=== PATIENT | female | born 1990 | race Caucasian/White ===

== ENCOUNTER → 2017-07-16 | Outpatient (CLI) | payer OTHER | END | disposition home or self-care (01) | LOC: C.PAPS 13:43 | PROVIDERS: ATTEND Obstetrics & Gynecology | DX: Z12.4 Encounter for screening for malignant neoplasm of cervix (principal) ==

== ENCOUNTER 2020-04-14 11:39 | Inpatient (IN) ==
[2020-04-14] MEDS ORDERED: OXYTOCIN 30 UNITS/500 ML BAG IV PRN ×2 (12:30→18:44)
[2020-04-14 13:04] LABS: Hemoglobin 12.6 g/dL (12.0-16.0); Mean Corpuscular Hemoglobin 30.5 pg (25-34); Mean Corpuscular Volume 89.6 fL (80-100); Mean Platelet Volume 11.5 fL (7.4-10.4); Platelet Count 169 K/uL (130-400); RDW Coefficient of Variation 13.5 % (11.5-14.5); RDW Standard Deviation 44.2 fL (36.4-46.3); Red Blood Count 4.13 M/uL (4.2-5.4); White Blood Count 9.75 K/uL (4.8-10.8)
[2020-04-14 13:07] LABS: Mean Corpuscular Hgb Conc 34.1 g/dL (32-36)
[2020-04-14 13:21] LABS: Alanine Aminotransferase 21 U/L (12-78); Albumin Level 2.4 gm/dl (3.4-5.0); Aspartate Aminotransferase 18 U/L (15-37); BUN Creatinine Ratio 12.2 (10-20); Blood Urea Nitrogen 10 mg/dl (7-18); Calcium 8.9 mg/dl (8.5-10.1); Carbon Dioxide 22 mmol/L (21-32); Chloride 108 mmol/L (98-107); Creatinine Clr Calc Pharmacy 116.5 ml/min; Est GFR (African American) 114.7; Est GFR (Non-African American) 98.9; Glucose 108 mg/dl (70-99); Potassium 4.1 mmol/L (3.5-5.1); Sodium 137 mmol/L (136-145)
[2020-04-14 13:24] LABS: Albumin Globulin Ratio 0.6 (0.9-2); Alkaline Phosphatase 179 U/L (45-117); Bilirubin Direct < 0.1 mg/dl (0-0.2); Bilirubin,Total 0.2 mg/dl (0.2-1); Total Protein 6.4 gm/dl (6.4-8.2)
[2020-04-14] MEDS ORDERED: PENICILLIN G POTASSIUM 6 MU in DEXTROSE 5% 250 ML IV ONE (14:30)
[2020-04-14] MEDS ORDERED: miSOPROStoL 25 MCG TAB PV ONE (14:40)
--- NOTE | 2020-04-14 18:42 | Labor Progress Brief Note ---
Date of Service April 14, 2020 Subjective Tolerating ctx, 1/10 pain. Assessment & Plan (1) Gestational hypertension: Admitted for induction of labor due to meeting criteria for gHTN in the office today at >39wk [place]. Labs have been reassuring, no s/sx preeclampsia here. Cytotec for ripening now complete; start pitocin. Admission and Anticipated Discharge Date Admission Date: April 14, 2020 Physical Exam Physical Exam: 280/-2 Intact membranes FHT Cat 1 [place] Q5 Results & Data ([facility]) Vital Signs (Past 12 Hours) Vital Signs Temp Pulse Resp BP 04/14/20 14:50 98.4 F 83 20 132/78 04/14/20 13:08 83 140/86 04/14/20 12:59 83 137/84 04/14/20 12:48 83 135/85 04/14/20 12:39 86 132/84 04/14/20 12:29 82 138/75 04/14/20 12:19 97 H 138/82 04/14/20 12:08 88 128/81 04/14/20 11:58 99 H 136/87 04/14/20 11:45 98.6 F 91 H 20 136/89 Coding Level of Care Code None Diagnoses Gestational hypertension O13.9
[2020-04-14] MEDS: LACTATED RINGER'S 1,000 ML IV PRN (19:10)
[2020-04-14] MEDS ORDERED: miSOPROStoL 25 MCG TAB PV SCH (21:00)
--- NOTE | 2020-04-14 22:23 | Labor Progress Brief Note ---
Date of Service April 14, 2020 Subjective Patient sleeping per RN, not awakened. No epidural, preferring to go without as long as possible. Assessment & Plan (1) Gestational hypertension: BP currently normal, labs were reassuring. Continue IOL, pitocin increasing per protocol and patient tolerating well. Admission and Anticipated Discharge Date Admission Date: April 14, 2020 Physical Exam Physical Exam: Cvx not examined at this time. FHT Cat 1 [place] Q2 Pit @ 11 Results & Data ([facility]) Vital Signs (Past 12 Hours) Vital Signs Temp Pulse Resp BP 04/14/20 22:06 83 125/65 04/14/20 20:58 68 121/59 L 04/14/20 19:59 81 135/82 04/14/20 19:08 20 04/14/20 19:06 73 134/80 04/14/20 19:05 98.1 F 20 04/14/20 14:50 98.4 F 83 20 132/78 04/14/20 13:08 83 140/86 04/14/20 12:59 83 137/84 04/14/20 12:48 83 135/85 04/14/20 12:39 86 132/84 04/14/20 12:29 82 138/75 04/14/20 12:19 97 H 138/82 04/14/20 12:08 88 128/81 04/14/20 11:58 99 H 136/87 04/14/20 11:45 98.6 F 91 H 20 136/89 Coding Level of Care Code None Diagnoses Gestational hypertension O13.9
[2020-04-14] MEDS: PENICILLIN G POTASSIUM 3 MU in DEXTROSE 5% 100 ML IV PRN (22:55)
[2020-04-15] MEDS: PENICILLIN G POTASSIUM 3 MU in DEXTROSE 5% 100 ML IV PRN ×3 (03:05→11:33)
[2020-04-15] MEDS: LACTATED RINGER'S 1,000 ML IV PRN ×2 (06:09→11:32)
--- NOTE | 2020-04-15 06:15 | Labor Progress Brief Note ---
Date of Service April 15, 2020 Subjective Patient tolerating contractions, does not want epidural. Assessment & Plan (1) Gestational hypertension: gHTN: Diagnosed by office pressures. BP normal here, labs OK. Minimal change after cytotec x1 followed by pitocin. Patient still prefers to proceed without epidural, therefore AROM performed at this time. Adjust pitocin, continue IOL. Admission and Anticipated Discharge Date Admission Date: April 14, 2020 Physical Exam Physical Exam: Cervix unchanged: 2/80/-2 [place] Q2m FHT Cat 1 AROM clear fluid Pit @ 20, will halve to 10 now for 1 hour to assess response to AROM / desaturate receptors. Results & Data ([facility]) Vital Signs (Past 12 Hours) Vital Signs Temp Pulse Resp BP 04/15/20 05:30 20 04/15/20 05:29 86 132/81 04/15/20 04:33 78 126/77 04/15/20 03:27 76 123/77 04/15/20 03:07 77 125/77 04/15/20 03:00 98.1 F 20 04/15/20 02:33 71 120/60 04/15/20 01:47 76 136/64 04/15/20 01:21 71 134/79 04/15/20 00:33 71 122/70 04/15/20 00:00 97.9 F 20 04/14/20 23:56 66 121/75 04/14/20 22:58 20 04/14/20 22:56 73 130/80 04/14/20 22:06 83 125/65 04/14/20 20:58 68 121/59 L 04/14/20 19:59 81 135/82 04/14/20 19:08 20 04/14/20 19:06 73 134/80 04/14/20 19:05 98.1 F 20 Coding Level of Care Code None Diagnoses Gestational hypertension O13.9
[2020-04-15] MEDS ORDERED: fentaNYL citrate 100 MCG/2 ML VIAL ONE (07:43)
[2020-04-15] MEDS ORDERED: BUPIVACAINE 0.25% 30 ML VIAL ONE (07:43)
[2020-04-15] MEDS ORDERED: ePHEDrine sulfate 50 MG/ML AMP ONE (07:43)
[2020-04-15] MEDS ORDERED: fentaNYL 2MCG/ML ROPIV 1.25MG/ML 100 ML BAG EPI ONE (07:44)
--- NOTE | 2020-04-15 07:53 | Anesthesiology Consultation ---
Date of Service April 15, 2020 Assessment & Plan (1) Encounter for pre-operative examination: Chart Review Chart Review: Acceptable Risk for Labor Epidural Consults Requested none ASA ASA2 Proposed Anesthesia Anesthesia Type: Labor Epidural Risk / Benefits Reviewed With: PT / POA / Parent / Guardian, Accepts Plan and Informed Consent Obtained History Height/Weight Height: 5 ft 5 in Weight: 93.894 kg Allergies Allergy/AdvReac Type Severity Reaction Status Date / Time No Known Drug Allergies Allergy none Verified 04/14/20 11:50 Medications Home Medications Medication Instructions Recorded Confirmed Last Taken prenat.vits,hansel,sho-ygts-rjiis 1 tab PO DAILY 08/27/19 04/14/20 04/13/20 23:45 Active Medications Generic Name Dose Route Start Last Admin Trade Name Freq PRN Reason Stop Dose Admin Lactated Ringer's 1,000 mls @ 125 mls/hr 04/14/20 12:30 04/15/20 07:47 Lr IV 04/16/20 12:29 999 mls/hr .Q8H PRN Infusion L&D Protocol Protocol Penicillin G Potassium 3 mu/ 106 mls @ 100 mls/hr 04/14/20 14:11 04/15/20 06:41 Dextrose IV 04/24/20 14:10 100 mls/hr Q4H PRN Administration Give until delivery Oxytocin 30 units in 500 mls @ 12 mls/hr 04/14/20 18:44 04/15/20 07:30 Pitocin IV 04/16/20 18:43 0.72 units/hr .Q24H PRN 12 mls/hr Labor Induction/Augmentation Titration Protocol 0.72 UNITS/HR Past Medical History Medical History Abnormal biochemical finding on screening of mother Encounter for anatomic survey History of PCOS Exercise / Class Metabolic Activity II 4-5 Yardwork/Stairs/Walk up hill Past Family History Family History Mother Diabetes Father Hypertension Past Surgical History Surgical History S/P wisdom tooth extraction Past Anesthesia History No Hx of Anesthesia Complications and No Family Hx of Anesthesia Complications History of PONV No Hx of PONV and No Hx of Motion Sickness Social History Smoking Status: Never smoker Hx Alcohol Use: No Hx Substance Use: No Physical Exam Vital Signs Last Vital Signs Temp 97.7 F 04/15/20 07:11 Pulse 88 04/15/20 07:11 Resp 20 04/15/20 07:11 BP 137/81 04/15/20 07:11 ENMT Mouth: no dentition abnormality Thyromental Distance: > or= 3.5 Finger Breadths Mallampati Class: II Neck normal visual inspection Respiratory normal respiratory effort Auscultation: lungs clear to auscultation bilaterally Cardiovascular Rate/Rhythm: regular rate and regular rhythm Testing Laboratory Results 04/14/20 12:53 04/14/20 12:53
[2020-04-15] MEDS ORDERED: DiphenhydrAMINE HCL 50 MG/ML VIAL IV PRN (08:15)
[2020-04-15] MEDS ORDERED: NALOXONE HCL 0.4 MG/1 ML VIAL/CARP IV PRN (08:15)
[2020-04-15] MEDS ORDERED: fentaNYL 2MCG/ML ROPIV 1.25MG/ML 100 ML BAG EPI PRN (08:15)
[2020-04-15] MEDS ORDERED: NALOXONE HCL 1 MG in SODIUM CHLORIDE 0.9% 1000ML 1,000 ML IV PRN (08:15)
[2020-04-15] MEDS ORDERED: ONDANSETRON INJ 2 MG/ML 2 ML VIAL IV PRN (08:15)
[2020-04-15] MEDS ORDERED: ePHEDrine sulfate 50 MG/ML AMP IV PRN (08:15)
--- NOTE | 2020-04-15 11:22 | Labor Progress Brief Note ---
Date of Service April 15, 2020 Subjective Reason For Note: Routine Evaluation Assessment & Plan (1) Gestational hypertension: Complete. Vitals wnl. Cat 1 (2) Supervision of normal first : Admission and Anticipated Discharge Date Admission Date: April 14, 2020 Physical Exam Genitourinary: OB Exam Abdomen: + vertex Manual OB Exam: + cervical dilation 10 cm, + cervical effacement 100%, + station + 2 and + amniotic fluid clear OB Exam Monitor Tracing: + external FHT monitor used, + external uterine monitor used, + category I and + normal FHT variability Results & Data ([facility]) Vital Signs (Past 12 Hours) Vital Signs Temp Pulse Resp BP Pulse Ox 04/15/20 11:15 82 98 04/15/20 11:13 86 121/59 L 04/15/20 11:10 97 H 99 04/15/20 11:05 78 97 04/15/20 11:00 79 98 04/15/20 10:57 71 114/57 L 04/15/20 10:55 80 98 04/15/20 10:52 82 93 04/15/20 10:50 74 98 04/15/20 10:45 77 99 04/15/20 10:42 80 120/57 L 04/15/20 10:40 75 98 04/15/20 10:37 85 93 04/15/20 10:35 79 99 04/15/20 10:30 68 98 04/15/20 10:26 80 118/65 04/15/20 10:25 76 96 04/15/20 10:23 102 H 93 04/15/20 10:20 84 97 04/15/20 10:15 82 90 04/15/20 10:12 93 H 93 04/15/20 10:11 79 132/81 04/15/20 10:09 79 96 04/15/20 10:06 82 90 04/15/20 10:04 71 96 04/15/20 09:59 81 98 04/15/20 09:56 76 130/77 04/15/20 09:54 66 98 04/15/20 09:49 77 98 04/15/20 09:44 67 97 04/15/20 09:42 78 137/75 04/15/20 09:39 75 95 04/15/20 09:34 79 98 04/15/20 09:31 60 91 04/15/20 09:29 63 96 04/15/20 09:26 75 129/80 04/15/20 09:24 74 97 04/15/20 09:19 72 96 04/15/20 09:14 76 98 04/15/20 09:11 63 16 129/78 04/15/20 09:09 62 96 04/15/20 09:07 86 93 04/15/20 09:04 72 97 04/15/20 08:59 71 98 04/15/20 08:56 79 129/77 04/15/20 08:54 65 99 04/15/20 08:49 65 97 04/15/20 08:44 82 93 04/15/20 08:41 58 L 132/76 04/15/20 08:39 62 100 04/15/20 08:34 67 99 04/15/20 08:29 77 99 04/15/20 08:26 36.7 C 71 16 119/76 04/15/20 08:24 71 127/77 99 04/15/20 08:21 68 20 125/76 04/15/20 08:20 72 20 125/73 04/15/20 08:19 71 97 04/15/20 08:17 84 124/79 04/15/20 08:15 82 129/72 04/15/20 08:14 85 98 04/15/20 08:13 76 128/75 04/15/20 08:12 75 127/73 04/15/20 08:09 75 136/84 97 04/15/20 08:04 76 97 04/15/20 07:59 86 98 04/15/20 07:54 79 141/83 H 97 04/15/20 07:11 36.5 C 88 20 137/81 04/15/20 06:27 82 137/82 04/15/20 06:05 36.7 C 04/15/20 05:30 20 04/15/20 05:29 86 132/81 04/15/20 04:33 78 126/77 0820 03:27 76 123/77 04/15/20 03:07 77 125/77 04/15/20 03:00 36.7 C 20 04/15/20 02:33 71 120/60 06 01:47 76 136/64 04/15/20 01:21 71 134/79 04/15/20 00:33 71 122/70 04/15/20 00:00 36.6 C 20 04/14/20 23:56 66 121/75 Coding Level of Care Code None Diagnoses Gestational hypertension O13.9 Supervision of normal first Z34.00
[2020-04-15] MEDS ORDERED: OXYCODONE/ACETAMINOPHEN 5mg/325mg TAB PO PRN (13:15)
[2020-04-15] MEDS ORDERED: ACETAMINOPHEN 325 MG TAB PO PRN (13:15)
[2020-04-15] MEDS ORDERED: SUPERCREAM 0.870% 15 GM JAR EXT PRN (13:37)
[2020-04-15] MEDS ORDERED: IBUPROFEN 600 MG TAB PO PRN (13:37)
[2020-04-15] MEDS ORDERED: DIPHTHERIA/TETANUS/PERTUSSIS 0.5 ML SYR/VIAL IM ONE (13:37)
[2020-04-15] MEDS ORDERED: HYDROCORTISONE ACETATE 25 MG SUPP PR PRN (13:37)
[2020-04-15] MEDS ORDERED: bisacodyL 10 MG SUPP PR PRN (13:37)
[2020-04-15] MEDS ORDERED: OXYTOCIN 30 UNITS/500 ML BAG IV PRN (13:37)
--- NOTE | 2020-04-15 14:49 | Anesthesia Procedure Note ---
Date of Service April 15, 2020 Anesthesia Post Epidural Note Vital Signs Vital Signs: Temp Pulse Resp BP Pulse Ox 98.1 F 100 H 16 132/77 85 L 04/15/20 13:11 04/15/20 14:41 04/15/20 14:12 04/15/20 14:41 04/15/20 13:21 Pain Intensity Abdomen: Pain Intensity: 0 Notes Mental Status: alert / awake / arousable and participated in evaluation Nausea / Vomiting: adequately controlled Pain: adequately controlled Airway Patency, RR, SpO2: stable & adequate BP & HR: stable & adequate Hydration State: stable & adequate Neuraxial Anesthesia: was administered and sensory block is resolving Anesthetic Complications: no major complications apparent and Pt Satisfied with anesthetic care Epidural: Removed without complications and With tip intact
--- NOTE | 2020-04-15 16:32 | Delivery Summary ---
DATE OF OPERATION: 04/15/2020 PROCEDURE: Normal spontaneous vaginal delivery with first degree perineal laceration repair and left vaginal sulcal laceration repair and periurethral laceration repair. SURGEON: Jareth Márquez MD. PREOPERATIVE DIAGNOSES: 1. Single intrauterine at 39+ weeks gestational age. 2. Gestational hypertension. 3. Group B Streptococcus positive. POSTOPERATIVE DIAGNOSES: 1. Single intrauterine at 39+ weeks gestational age. 2. Gestational hypertension. 3. Group B Streptococcus positive. 4. Status post delivery. ESTIMATED BLOOD LOSS: 300 mL. DRAINS: Straight cath for 300 mL. FLUIDS: Continuous lactated Ringer. URINE OUTPUT: As above. COMPLICATIONS: None. FINDINGS: Viable female with weight of 7 pounds 0.8 ounces and Apgars of 7 and 9 at one and five minutes, respectively. DESCRIPTION OF PROCEDURE: The patient progressed to 10 cm dilated, 100% effaced, +2 station, pushed over an intact perineum with epidural anesthesia and delivered a viable female , weight and Apgars as noted above. Head of the delivered in BIENVENIDO position, restituted to right transverse. No nuchal cord was noted. Body and shoulders quickly followed. was noted to be vigorous soon after delivery and a 1-minute delayed cord clamping was initiated. Cord was then double clamped and cut. The remained on maternal abdomen. The cord blood was then obtained. Attention was then turned to deliver the placenta, which was delivered intact, 3-vessel cord, gentle cord traction. On inspection of perineum, vagina, and cervix, the above noted lacerations were noted. The vaginal lacerations were repaired with 3-0 Vicryl continuous running locked stitch. The periurethral laceration was repaired with 3-0 Vicryl in interrupted stitch. Needle, sponge and instrument counts were correct at the completion of the case. Both mother and were stable in the immediate post-delivery period. I attest to the content of the Intraoperative Record and any orders documented therein. Any exception s are noted below.
[2020-04-15] MEDS: BENZOCAINE 20% AER SPR 82.5 GM CAN EXT PRN (20:27)
[2020-04-15] MEDS: DOCUSATE SODIUM 100 MG CAP PO SCH (20:27)
--- NOTE | 2020-04-16 05:11 | Obstetrical Progress Note ---
Date of Service <Obinna Ang MD - Last Filed: 04/16/20 07:12> April 16, 2020 Assessment & Plan <Obinna Ang MD - Last Filed: 04/16/20 07:12> (1) (spontaneous vaginal delivery): - Feels well today. Eating well, voiding well, ambulating well. - Pain well controlled with ibuprofen 600mg Q4H PRN. - Routine PPD care -- OOB, ambulation, diet progression as tolerated Day #:: 1 Subjective <Obinna Ang MD - Last Filed: 04/16/20 07:12> Jessica is a 29 y/o female who is now PPD #1 following IOL (in setting of gHTN onset at term) and subsequent at 39-2/7 weeks. Reports feeling well overall this morning. Endorses some abdominal cramping that is well managed on analgesics. Voiding without difficulty. Tolerating meals overnight and able to ambulate some. Endorses passing gas but not yet bowel movements. Some persistent lochia with some improvement this morning. Breast feeding. Review of Systems Denies fever, chills, sweats Denies shortness of breath, difficulty breathing, chest pain, palpitations, chest pressure. Denies breast pain. Denies dysuria. Denies headache or changes in vision. Physical Exam <Obinna Ang MD - Last Filed: 04/16/20 07:12> General: Alert, oriented. No acute distress. Cardiac: Regular rate and rhythm, no murmurs/rubs/gallops. Respiratory: Clear to auscultation bilaterally a/p, no wheezes/rales/rhonchi. No increased work of breathing. Symmetrical chest rise. No respiratory distress. Abdomen: Soft, nontender, nondistended. Bowel sounds present. Uterus: Uterine fundus firm, palpable 1 cm below umbilicus. Lower Extremities: No lower extremity edema or swelling. No deep calf pain. Jennifer's negative bilaterally. Results & Data <Obinna Ang MD - Last Filed: 04/16/20 07:12> Vital Signs (Past 12 Hours) Vital Signs Temp Pulse Resp BP Pulse Ox 04/16/20 04:30 36.9 C 81 18 125/73 04/15/20 23:45 37.1 C 97 H 18 127/71 08/06/20 19:30 36.8 C 92 H 18 119/74 99 <Jareth Márquez MD - Last Filed: 04/16/20 07:39> Co-Signing Physician Notes Patient seen and evaluated and agree with the above findings and plan. Routine care. Stable for discharge if preferred by patient Resident Activity Tracking <Obinna Ang MD - Last Filed: 04/16/20 07:12> Resident Involvement: Resident Care Provided Care Provided: Adult Hospital Medicine and OB Delivery
[2020-04-16 06:59] LABS: Hematocrit (blood only) 33.5 % (37-47); Hemoglobin 11.3 g/dL (12.0-16.0); Mean Corpuscular Hemoglobin 30.5 pg (25-34); Mean Corpuscular Hgb Conc 33.7 g/dL (32-36); Mean Corpuscular Volume 90.5 fL (80-100); Platelet Count 159 K/uL (130-400); RDW Standard Deviation 45.9 fL (36.4-46.3); White Blood Count 10.44 K/uL (4.8-10.8)
[2020-04-16] MEDS: PRENATAL VITAMIN 1 TAB PO SCH (08:34)
[2020-04-16] MEDS: DOCUSATE SODIUM 100 MG CAP PO SCH ×2 (08:34→20:32)
[2020-04-16] MEDS ORDERED: NON-FORMULARY MEDICATION (Prenat.Vits,Cal,Min-Iron-Folic 1 TAB) PO SCH (09:00)
[2020-04-16] MEDS ORDERED: bisacodyL 5 MG TABEC PO SCH (20:00)
--- NOTE | 2020-04-17 05:09 | Obstetrical Progress Note ---
Date of Service <Obinna Ang MD - Last Filed: 04/17/20 06:26> April 17, 2020 Assessment & Plan <Obinna Ang MD - Last Filed: 04/17/20 06:26> (1) (spontaneous vaginal delivery): - Feels well today. Eating well, voiding well, ambulating well. - Pain well controlled with ibuprofen 600mg Q4H PRN. - Routine PPD care -- continued OOB and ambulation as tolerated - With regards to her gHTN, BPs over the last 24 hours have mostly hovered in the 120/70 range, with a recorded max of 138/82 at 1535hr yesterday. Jessica remains asymptomatic from the standpoint of preeclamptic symptoms. - stable for d/c today Subjective <Obinna Ang MD - Last Filed: 04/17/20 06:26> Jessica is a 29 y/o female who is now PPD #2 following IOL (in setting of gHTN onset at term) and subsequent at 39-2/7 weeks. Reports feeling well overall this morning. Endorses some abdominal cramping that is well managed on analgesics. Voiding without difficulty. Tolerating meals fine and able to ambulate some. Endorses passing gas but not yet bowel movements. Some persistent lochia with some improvement this morning. Breast feeding. Review of Systems Denies fever, chills, sweats Denies shortness of breath, difficulty breathing, chest pain, palpitations, chest pressure. Denies breast pain. Denies dysuria. Denies headache or changes in vision. Physical Exam <Obinna Ang MD - Last Filed: 04/17/20 06:26> General: Alert, oriented. No acute distress. Cardiac: Regular rate and rhythm, no murmurs/rubs/gallops. Respiratory: Clear to auscultation bilaterally a/p, no wheezes/rales/rhonchi. No increased work of breathing. Symmetrical chest rise. No respiratory distress. Abdomen: Soft, nontender, nondistended. Bowel sounds present. Uterus: Uterine fundus firm, palpable 2 cm below umbilicus. Lower Extremities: No lower extremity edema or swelling. No deep calf pain. Jennifer's negative bilaterally. Results & Data <Obinna Ang MD - Last Filed: 04/17/20 06:26> Vital Signs (Past 12 Hours) Vital Signs Temp Pulse Resp BP 04/16/20 23:15 36.8 C 76 18 118/69 04/16/20 20:30 36.7 C 88 18 135/79 <Ayla Dawson MD, FACOG - Last Filed: 04/17/20 07:29> Co-Signing Physician Notes Resident Physician Supervision Note: I interviewed and examined the patient. Discussed with Dr. Ang and agree with findings and plan as documented in the note. Any exceptions or clarifications are listed here: Doing well. Plan d/c. no issues with blood pressures. f/u in a week in office for blood pressure check. Documented By: Ayla Dawsno MD, FACOG Resident Activity Tracking <Obinna Ang MD - Last Filed: 04/17/20 06:26> Resident Involvement: Resident Care Provided Care Provided: Adult Hospital Medicine and OB Delivery
[2020-04-17] MEDS: DOCUSATE SODIUM 100 MG CAP PO SCH ×2 (08:03→21:00)
[2020-04-17] MEDS: PRENATAL VITAMIN 1 TAB PO SCH (08:03)
[2020-04-17 08:15] VITALS: TEMP 98.4
[2020-04-17 19:36] VITALS: BP 137/80; PULSE 86; O2SAT 97
[2020-04-17] MEDS: BENZOCAINE 20% AER SPR 82.5 GM CAN EXT PRN (21:17)
== END 2020-04-17 21:30 | disposition home or self-care (01) | DRG 807 ==
LOC: OPB 11:39 → 4S1 11:42 → 4S2 04-15 16:48

== ENCOUNTER 2023-02-12 07:43 | Inpatient (IN) ==
[2023-02-12] MEDS ORDERED: OXYTOCIN 30 UNITS/500 ML BAG IV PRN ×3 (07:44→21:44)
[2023-02-12] MEDS ORDERED: LIDOCAINE 1% LOCAL 20 ML VIAL INFIL PRN (07:44)
[2023-02-12] MEDS ORDERED: PENICILLIN G POTASSIUM 6 MU in DEXTROSE 5% 250 ML IV STA (08:16)
--- NOTE | 2023-02-12 08:22 | History & Physical Report ---
Date of Service February 12, 2023 Assessment & Plan (1) Encounter for induction of labor: (2) Gestational diabetes mellitus (GDM) affecting , antepartum: (3) Carrier of group B Streptococcus: Plan admit, iv, labs. pitocin induction planned. start pcn for gbs. bsg now and q2hr in labor. epidural when desires. Admission and Anticipated Discharge Date Admission Date: February 12, 2023 History of Present Illness Chief Complaint: induction Primary Care Provider: NO PCP 32yo at 40+wks ega presents to L&D with above cc. Denies rom, vb. +FM. No ctx. PNC c/b 1. GBS pos urine, trt in labor 2. GDM, diet controlled. aga on u/s 3. History of polyhydramnios, resolved at last dvp 4. Prior history of gest htn PNL rhpos, ri, gbs pos Allergies Allergy/AdvReac Type Severity Reaction Status Date / Time No Known Drug Allergies Allergy none Verified 02/08/23 10:03 Home Medications Medication Instructions Recorded Confirmed Type prenat.vits,hansel,xzi-dtce-vucjl 1 tab PO DAILY 07/03/22 02/08/23 History acetone (urine) test (Ketone Urine #50 ea 12/04/22 02/08/23 Rx Test strips) blood sugar diagnostic (OneTouch #150 ea 12/04/22 02/08/23 Rx Verio test strips) blood-glucose meter (OneTouch #1 ea 12/04/22 02/08/23 Rx Verio Reflect Meter) lancets 33 gauge (OneTouch Delica #150 ea 12/04/22 02/08/23 Rx Lancets) Patient History Medical History (Updated 02/12/23 @ 08:20 by Patricia Hooper MD, FACOG) Abnormal biochemical finding on screening of mother Encounter for anatomic survey History of chicken pox History of gestational hypertension History of PCOS Surgical History S/P wisdom tooth extraction Family History (Updated 07/03/22 @ 13:08 by Isha Hale) Mother Diabetes Father Hypertension Denies family history of Ovarian cancer Breast cancer Colorectal cancer Social History (Updated 07/03/22 @ 13:26 by Isha Hale) Smoking Status: Never smoker Do You Dip or Chew Tobacco: No; Hx Alcohol Use: No Hx Substance Use: No Preferred Language: Divehi Communication Ability: Effective Econometrics Professor Required: No Beliefs That Will Affect Care: None marital status: marital status details: Bryon Epps (32) [phone] Current Living Situation: Spouse and Family Current Living Situation Comment: lives with spouse, child & 1 dog current occupational status: employed current occupation: [employer] Feels Safe at Home: Yes Assistive Devices: None Review of Systems as per Subjective / HPI Physical Exam Constitutional: WD/WN, vitals as above Respiratory: normal respiratory effort, lungs clear to auscultation Cardiovascular: Rate/Rhythm: regular rate and regular rhythm Gastrointestinal (Abdomen): soft gravid nt efw 7-8# Musculoskeletal: no edema nontender calves Neurologic: grossly normal Psychiatric: A+Ox3, euthymic affect Genitourinary: Manual OB Exam: + cervical dilation (3), + cervical effacement 50% and + station (post, med) -2 OB Exam Monitor Tracing: + external FHT monitor used, + external uterine monitor used, + category I and + normal FHT variability Results & Data Vital Signs (Past 12 Hours) Vital Signs Pulse BP 02/12/23 07:57 100 H 141/82 H Coding Level of Care Code None Diagnoses Encounter for induction of labor Z34.90 Gestational diabetes mellitus (GDM) affecting , antepartum O24.419 Carrier of group B Streptococcus Z22.330
[2023-02-12 08:44] LABS: Hematocrit (blood only) 35.4 % (37.0-47.0); Hemoglobin 12.3 g/dl (12.0-16.0); Mean Corpuscular Hemoglobin 29.7 pg (25.0-34.0); Mean Corpuscular Hgb Conc 34.7 g/dL (32.0-36.0); Mean Corpuscular Volume 85.5 fL (80.0-100.0); Mean Platelet Volume 11.5 fL (9.4-12.4); Platelet Count 232 K/uL (130-400); RDW Coefficient of Variation 13.5 % (11.5-14.5); RDW Standard Deviation 42.2 fL (36.4-46.3); Red Blood Count 4.14 M/uL (4.20-5.40); White Blood Count 10.72 K/ul (4.8-10.8)
[2023-02-12 08:58] LABS: Albumin Globulin Ratio 1.2 (0.9-2); Albumin Level 3.1 gm/dl (3.4-5.0); BUN Creatinine Ratio 20.3 (10-20); Bilirubin Direct 0.1 mg/dl (0-0.2); Bilirubin,Total 0.3 mg/dl (0.2-1.0); Calcium 8.6 mg/dl (8.6-10.3); Creatinine Clr Calc Pharmacy 139.5 ml/min; Est GFR (African American) 135.9 ml/min; Est GFR (Non-African American) 117.2 ml/min; Globulin 2.6 gm/dl (2.5-4.0); Potassium 3.6 mmol/L (3.5-5.1); Total Protein 5.7 gm/dl (6.0-8.3)
[2023-02-12] MEDS: LACTATED RINGER'S 1,000 ML IV PRN ×3 (09:06→20:47)
[2023-02-12] MEDS: PENICILLIN G POTASSIUM 3 MU in DEXTROSE 5% 100 ML IV PRN ×2 (13:22→17:35)
[2023-02-12] MEDS ORDERED: ePHEDrine sulfate 50 MG/ML AMP ONE (14:26)
[2023-02-12] MEDS ORDERED: fentaNYL citrate PF 100 MCG/2 ML VIAL ONE (14:27)
[2023-02-12] MEDS ORDERED: fentaNYL 2MCG/ML ROPIVACAINE 1.25MG/ML 100 ML BAG EPI ONE (14:27)
[2023-02-12] MEDS ORDERED: BUPIVACAINE 0.25% PF 30 ML VIAL ONE (14:27)
[2023-02-12] MEDS ORDERED: SODIUM CHLORIDE 0.9% PF INJ 10 ML VIAL ONE (14:27)
[2023-02-12] MEDS ORDERED: LIDOCAINE 2%/EPINEPHRINE 1:200,000 20 ML PF ONE (14:27)
[2023-02-12] MEDS ORDERED: fentaNYL 2MCG/ML ROPIVACAINE 1.25MG/ML 100 ML BAG EPI PRN (15:41)
[2023-02-12] MEDS ORDERED: LIDOCAINE 2% MPF LOCAL 5 ML VIAL EPI PRN (15:41)
[2023-02-12] MEDS ORDERED: SODIUM CHLORIDE 0.9% PF INJ 10 ML VIAL EPI PRN (15:41)
[2023-02-12] MEDS ORDERED: NALOXONE HCL 1 MG in SODIUM CHLORIDE 0.9% 1000ML 1,000 ML IV PRN (15:41)
[2023-02-12] MEDS ORDERED: LIDOCAINE 2%/EPINEPHRINE 1:200,000 20 ML PF EPI STA (15:41)
[2023-02-12] MEDS ORDERED: NALBUPHINE HCL INJ 10 MG/ML AMP IV PRN (15:41)
[2023-02-12] MEDS ORDERED: SODIUM CHLORIDE 0.9% PF INJ 10 ML VIAL EPI STA (15:41)
[2023-02-12] MEDS ORDERED: diphenhydrAMINE 50 MG/ML VIAL IV PRN (15:41)
[2023-02-12] MEDS ORDERED: PROMETHAZINE HCL 6.25 MG in SODIUM CHLORIDE 0.9% 50 ML IV PRN (15:41)
[2023-02-12] MEDS ORDERED: ONDANSETRON INJ 2 MG/ML 2 ML VIAL IV PRN (15:41)
[2023-02-12] MEDS ORDERED: ROPIVACAINE 0.5% PF 5 MG/ML 20 ML VIAL EPI PRN (15:41)
[2023-02-12] MEDS ORDERED: BUPIVACAINE 0.25% PF 30 ML VIAL EPI PRN (15:41)
[2023-02-12] MEDS ORDERED: fentaNYL citrate PF 100 MCG/2 ML VIAL EPI PRN (15:41)
[2023-02-12] MEDS ORDERED: fentaNYL citrate PF 100 MCG/2 ML VIAL EPI STA (15:41)
[2023-02-12] MEDS ORDERED: ePHEDrine sulfate 50 MG/ML AMP IV PRN (15:41)
[2023-02-12] MEDS ORDERED: NALOXONE HCL 0.4 MG/1 ML VIAL/CARP IV PRN (15:41)
[2023-02-12] MEDS ORDERED: BUPIVACAINE 0.25% PF 30 ML VIAL EPI STA (15:41)
--- NOTE | 2023-02-12 15:41 | Anesthesiology Consultation ---
Date of Service February 12, 2023 Assessment & Plan Chart Review Chart Review: Patient NOT seen in Pre Admission Testing and Acceptable Risk for Labor Epidural Consults Requested none ASA ASA2 Proposed Anesthesia Anesthesia Type: Labor Epidural Risk / Benefits Reviewed With: PT / POA / Parent / Guardian, Accepts Plan and Informed Consent Obtained History Height/Weight Height: 5 ft 5 in Weight: 91.172 kg Allergies Allergy/AdvReac Type Severity Reaction Status Date / Time No Known Drug Allergies Allergy none Verified 02/08/23 10:03 Medications Home Medications Medication Instructions Recorded Confirmed Last Taken prenat.vits,hansel,vco-anou-cgtki 1 tab PO DAILY 07/03/22 02/12/23 02/11/23 acetone (urine) test (Ketone Urine #50 ea 12/04/22 02/08/23 Unknown Test strips) blood sugar diagnostic (OneTouch #150 ea 12/04/22 02/08/23 Unknown Verio test strips) blood-glucose meter (OneTouch #1 ea 12/04/22 02/08/23 Unknown Verio Reflect Meter) lancets 33 gauge (OneTouch Delica #150 ea 12/04/22 02/08/23 Unknown Lancets) aspirin 81 mg tablet 81 mg PO DAILY 02/12/23 02/12/23 02/11/23 Active Medications Generic Name Dose Route Start Last Admin Trade Name Freq PRN Reason Stop Dose Admin Oxytocin 30 units in 500 mls @ 17 mls/hr 02/12/23 07:44 02/12/23 14:10 Pitocin IV 02/14/23 07:43 1.02 units/hr .Q24H PRN 17 mls/hr Labor Induction/Augmentation Titration Protocol 1.02 UNITS/HR Lactated Ringer's 1,000 mls @ 125 mls/hr 02/12/23 07:44 02/12/23 14:40 Lr IV 02/14/23 07:43 125 mls/hr .Q8H PRN Administration L&D Protocol Protocol Penicillin G Potassium 3 mu/ 106 mls @ 100 mls/hr 02/12/23 11:16 02/12/23 14:30 Dextrose IV 02/22/23 11:15 Infused Q4H PRN Infusion GBS(+) Until Delivery Past Medical History Medical History (Updated 02/12/23 @ 08:20 by Patricia Hooper MD, FACOG) Abnormal biochemical finding on screening of mother Encounter for anatomic survey History of chicken pox History of gestational hypertension History of PCOS Exercise / Class Metabolic Activity II 4-5 Yardwork/Stairs/Walk up hill Past Family History Family History (Updated 07/03/22 @ 13:08 by Isha Hale) Mother Diabetes Father Hypertension Denies family history of Ovarian cancer Breast cancer Colorectal cancer Past Surgical History Surgical History S/P wisdom tooth extraction Past Anesthesia History No Hx of Anesthesia Complications and No Family Hx of Anesthesia Complications History of PONV No Hx of PONV and No Hx of Motion Sickness Social History Smoking Status: Never smoker Do You Dip or Chew Tobacco: No Hx Alcohol Use: No Hx Substance Use: No substance use type: does not use Physical Exam Vital Signs Last Vital Signs Temp 36.9 C 02/12/23 13:30 Pulse 72 02/12/23 15:40 Resp 22 02/12/23 15:00 BP 115/62 02/12/23 15:40 Pulse Ox 100 02/12/23 15:39 ENMT Mouth: no dentition abnormality Thyromental Distance: > or= 3.5 Finger Breadths Mallampati Class: II Neck normal visual inspection Respiratory normal respiratory effort Auscultation: lungs clear to auscultation bilaterally Cardiovascular Rate/Rhythm: regular rate and regular rhythm Psychiatric Orientation: alert Testing Laboratory Results 02/12/23 08:09 02/12/23 08:09 Blood Type O Positive 02/12/23 08:09 Antibody Screen NEGATIVE 02/12/23 08:09 02/12/23 09:13 POC Glucose 84
--- NOTE | 2023-02-12 15:55 | Labor Progress Brief Note ---
Date of Service February 12, 2023 Subjective Comfortable w/ epidural Assessment & Plan (1) Encounter for induction of labor: (2) Gestational diabetes mellitus (GDM) affecting , antepartum: (3) Carrier of group B Streptococcus: Plan 32 yo at 40 1/7 admitted for IOL VSS Fetus cat 1 Labor - pit at 15, now s/p arom A1GDM - q2h bg GBS+, pcn ordered epidural in place Admission and Anticipated Discharge Date Admission Date: February 12, 2023 Physical Exam Genitourinary: Manual OB Exam: + cervical dilation (3.5), + cervical effacement 50%, + station -2 and + amniotic fluid (arom clear) OB Exam Monitor Tracing: + external FHT monitor used, + external uterine monitor used (q3-5) and + category I (135/mod/+accel/-decel) Results & Data Vital Signs (Past 12 Hours) Vital Signs Temp Pulse Resp BP Pulse Ox 02/12/23 08:17 97.9 F 20 02/12/23 15:49 100 02/12/23 15:49 73 02/12/23 15:44 100 02/12/23 15:44 71 02/12/23 15:44 117/63 02/12/23 15:39 100 02/12/23 15:39 72 02/12/23 15:40 72 02/12/23 15:40 115/62 02/12/23 15:34 100 02/12/23 15:34 72 02/12/23 15:35 78 02/12/23 15:35 113/62 02/12/23 15:29 99 02/12/23 15:29 83 02/12/23 15:29 124/77 02/12/23 15:24 98 02/12/23 15:24 105 H 02/12/23 15:24 120/79 02/12/23 15:22 79 02/12/23 15:22 114/71 02/12/23 15:20 92 H 02/12/23 15:20 121/75 02/12/23 15:19 98 02/12/23 15:19 80 02/12/23 15:18 84 02/12/23 15:18 116/73 02/12/23 15:16 69 02/12/23 15:16 117/73 02/12/23 15:14 100 02/12/23 15:14 82 02/12/23 15:13 74 02/12/23 15:13 132/80 02/12/23 15:11 76 02/12/23 15:11 131/77 02/12/23 15:09 100 02/12/23 15:09 74 02/12/23 15:07 92 02/12/23 15:07 91 H 02/12/23 15:04 100 02/12/23 15:04 73 02/12/23 15:00 22 02/12/23 15:00 22 02/12/23 14:59 99 02/12/23 14:59 76 02/12/23 14:28 18 02/12/23 14:28 18 02/12/23 14:54 100 02/12/23 14:54 72 02/12/23 14:49 100 02/12/23 14:49 70 02/12/23 14:00 20 02/12/23 14:00 20 02/12/23 14:44 100 02/12/23 14:44 72 02/12/23 14:39 100 02/12/23 14:39 78 02/12/23 14:39 143/80 H 02/12/23 14:34 100 02/12/23 14:34 81 02/12/23 13:00 20 02/12/23 13:00 20 02/12/23 13:30 20 02/12/23 13:30 98.4 F 20 02/12/23 13:24 77 02/12/23 13:24 116/69 02/12/23 12:00 18 02/12/23 12:00 97.9 F 18 02/12/23 12:21 76 02/12/23 12:21 132/76 02/12/23 11:30 20 02/12/23 11:30 20 02/12/23 11:39 71 02/12/23 11:39 133/83 02/12/23 11:00 20 02/12/23 11:00 20 02/12/23 10:30 18 02/12/23 10:30 18 02/12/23 10:33 78 02/12/23 10:33 118/69 02/12/23 10:00 18 02/12/23 10:00 18 02/12/23 09:00 18 02/12/23 09:00 18 02/12/23 09:30 20 02/12/23 09:30 20 02/12/23 09:09 86 02/12/23 09:09 129/78 02/12/23 07:57 100 H 141/82 H Coding Level of Care Code None Diagnoses Encounter for induction of labor Z34.90 Gestational diabetes mellitus (GDM) affecting , antepartum O24.419 Carrier of group B Streptococcus Z22.330
[2023-02-12] MEDS ORDERED: HYDROCORTISONE ACETATE 25 MG SUPP PR PRN (21:44)
[2023-02-12] MEDS ORDERED: DIPHTHERIA/TETANUS/PERTUSSIS Vaccine (Tdap, Age 7+yrs) 0.5mL SYR/VL IM ONE (21:44)
[2023-02-12] MEDS ORDERED: bisacodyL 10 MG SUPP PR PRN (21:44)
[2023-02-12] MEDS ORDERED: BENZOCAINE 20% AER SPR 82.5 GM CAN EXT PRN (21:44)
[2023-02-12] MEDS ORDERED: ACETAMINOPHEN 325 MG TAB PO PRN (21:44)
--- NOTE | 2023-02-12 21:48 | Delivery Summary ---
Vaginal Delivery Summary Date of Service February 12, 2023 Vaginal Delivery Summary and 1st Degree LAC PREOPERATIVE DIAGNOSIS: 1. Single intrauterine at 40 1/7 wga 2. A1GDM 3. Polyhydramnios 4. GBS+ POSTOPERATIVE DIAGNOSIS: 1. Single intrauterine at 40 1/7 wga 2. A1GDM 3. Polyhydramnios 4. GBS+ 5. Delivered PROCEDURE: 1. Normal spontaneous vaginal delivery. SURGEON: Avani Fish MD ANESTHESIA: Epidural. ESTIMATED BLOOD LOSS: 300 mL FLUIDS: Continuous LR. URINE OUTPUT: None. COMPLICATIONS: None. CONDITION: Stable. INDICATIONS: 32 yo at 40 1/7 wga presented for IOL this AM. Was started on pencillin for GBS+ status and pitocin for induction. She received an epidural for pain control and underwent arom. She continued to progress to complete and desired to push. FINDINGS: A viable male infant, weight pending with Apgars of 8 and 8 at 1 and 5 minutes respectively. SPECIMEN: Cord blood OPERATIVE REPORT: The patient progressed to 10 cm, 100% effaced and +2 station, pushed over intact perineum with anesthesia to deliver a viable male , weight and Apgars as above. Head of delivered in BIENVENIDO position. Cord was noted to be wrapped twice around neck, once around body, and once around foot. Body and shoulders were delivered without difficulty. was delivered to maternal abdomen and nursing staff. Delayed cord clamping was performed for 60 seconds. Cord was clamped and cut. Cord blood was obtained. Placenta delivered spontaneously intact with 3-vessel cord. IV oxytocin and fundal massage were given for excellent hemostasis. Vagina, cervix, perineum, and placenta were inspected. A first degree laceration was noted and repaired using 3-0 vicryl. A bleeding vaginal abrasion was made hemostatic with a figure of eight stitch. There were other abrasions noted in the vagina and periclitoral but were he mostatic so not needed to be repaired. Sponge and needle counts correct x2. No sponges were left behind. Mother and stable in immediate period. [facility] [place] Vaginal Delivery Codes: 14744 global code for the antepartum, delivery, and post- Delivery Type Details: and 1st Degree LAC
[2023-02-13] MEDS: IBUPROFEN 600 MG TAB PO PRN ×4 (00:38→20:36)
--- NOTE | 2023-02-13 07:02 | Obstetrical Progress Note ---
Date of Service <Jorge Mckeon - Last Filed: 02/13/23 07:03> February 13, 2023 Assessment & Plan <Jorge Mckeon - Last Filed: 02/13/23 07:03> (1) Vaginal delivery: Plan - Feels well today. Eating well, voiding well, ambulating well. - Pain well controlled with ibuprofen 600mg Q4H PRN - Routine care -- OOB, ambulation, diet progression as tolerated - After discharge will have 6 week follow-up with Dr. Fish. Day #:: 1 <Avani Fish MD - Last Filed: 02/13/23 07:04> (1) Vaginal delivery: Subjective <Jorge Mckeon - Last Filed: 02/13/23 07:03> Ambulation: ambulating normally Voiding: no voiding problems Passing Gas:: Yes Diet Tolerance:: regular diet Lochia:: Small Feeding Type:: breast feeding Current Pain Level(1-10): 3 Review of Systems Denies fever, chills, sweats Denies shortness of breath, difficulty breathing, chest pain, palpitations, chest pressure. Denies breast pain. Denies dysuria. Denies headache or changes in vision. Physical Exam <Jorge Mckeon - Last Filed: 02/13/23 07:03> General: Alert, oriented. No acute distress. Cardiac: Regular rate and rhythm, no murmurs/rubs/gallops. Respiratory: Clear to auscultation bilaterally a/p, no wheezes/rales/rhonchi. No increased work of breathing. Symmetrical chest rise. No respiratory distress. Abdomen: Soft, nontender, nondistended. Bowel sounds present. Uterus: Uterine fundus firm, palpable 2 cm below umbilicus. Lower Extremities: No lower extremity edema or swelling. No deep calf pain. Jennifer's negative bilaterally. Results & Data <Jorge Mckeon - Last Filed: 02/13/23 07:03> Vital Signs (Past 12 Hours) Vital Signs Temp Pulse Pulse Resp BP BP Pulse Ox 02/13/23 04:00 36.8 C 77 16 105/68 97 02/13/23 00:30 36.8 C 91 H 16 123/74 97 02/12/23 23:35 18 02/12/23 23:05 18 02/12/23 22:35 18 02/12/23 22:20 18 02/12/23 22:05 18 02/12/23 21:50 18 02/12/23 21:35 36.8 C 18 02/12/23 23:38 96 H 02/12/23 23:38 122/58 L 02/12/23 23:35 96 H 02/12/23 23:35 121/58 L 02/12/23 23:20 113 H 02/12/23 23:20 128/65 02/12/23 23:05 99 H 02/12/23 23:05 128/59 L 02/12/23 22:50 105 H 02/12/23 22:50 142/63 H 02/12/23 22:35 95 H 02/12/23 22:35 138/60 02/12/23 22:20 87 02/12/23 22:20 138/76 02/12/23 21:50 82 02/12/23 21:50 128/74 02/12/23 21:35 84 02/12/23 21:35 133/77 02/12/23 21:21 80 L 02/12/23 21:21 113 H 02/12/23 21:19 98 02/12/23 21:19 94 H 02/12/23 21:14 98 02/12/23 21:14 92 H 02/12/23 21:09 99 02/12/23 21:09 88 02/12/23 21:05 90 02/12/23 21:05 127/62 02/12/23 21:04 98 02/12/23 21:04 97 H 02/12/23 21:00 18 02/12/23 21:00 18 02/12/23 20:59 99 02/12/23 20:59 95 H 02/12/23 20:54 98 02/12/23 20:54 96 H 02/12/23 20:50 85 02/12/23 20:50 110/60 02/12/23 20:49 98 02/12/23 20:49 86 02/12/23 20:44 99 02/12/23 20:44 88 02/12/23 20:39 99 02/12/23 20:39 81 02/12/23 20:30 18 02/12/23 20:30 18 02/12/23 20:34 99 02/12/23 20:34 87 02/12/23 20:35 86 02/12/23 20:35 106/59 L 02/12/23 20:29 98 02/12/23 20:29 84 02/12/23 20:24 99 02/12/23 20:24 86 02/12/23 20:21 82 02/12/23 20:21 113/64 02/12/23 20:19 99 02/12/23 20:19 88 02/12/23 20:14 99 02/12/23 20:14 88 02/12/23 20:09 100 02/12/23 20:09 85 02/12/23 20:06 88 02/12/23 20:06 132/67 02/12/23 20:00 18 02/12/23 20:00 18 02/12/23 20:04 100 02/12/23 20:04 87 02/12/23 19:59 99 02/12/23 19:59 102 H 02/12/23 19:54 98 02/12/23 19:54 74 02/12/23 19:49 99 02/12/23 19:49 75 02/12/23 19:50 75 02/12/23 19:50 100/56 L 02/12/23 19:44 99 02/12/23 19:44 74 02/12/23 19:39 98 02/12/23 19:39 73 02/12/23 19:36 72 02/12/23 19:36 102/57 L 02/12/23 19:34 99 02/12/23 19:34 69 02/12/23 19:30 18 02/12/23 19:30 18 02/12/23 19:29 99 02/12/23 19:29 70 02/12/23 19:24 99 02/12/23 19:24 72 02/12/23 19:23 80 02/12/23 19:23 93/51 L 02/12/23 19:19 100 02/12/23 19:19 79 02/12/23 19:14 100 02/12/23 19:14 82 02/12/23 19:09 99 02/12/23 19:09 77 0605/23 19:06 73 02/12/23 19:06 120/68 02/12/23 19:04 100 02/12/23 19:04 72 O2 Del Method 02/13/23 04:00 Room Air 02/13/23 00:30 Room Air 02/12/23 23:35 02/12/23 23:05 02/12/23 22:35 02/12/23 22:20 02/12/23 22:05 02/12/23 21:50 02/12/23 21:35 02/12/23 23:38 02/12/23 23:38 02/12/23 23:35 02/12/23 23:35 02/12/23 23:20 02/12/23 23:20 02/12/23 23:05 02/12/23 23:05 02/12/23 22:50 02/12/23 22:50 02/12/23 22:35 02/12/23 22:35 02/12/23 22:20 02/12/23 22:20 02/12/23 21:50 02/12/23 21:50 02/12/23 21:35 02/12/23 21:35 02/12/23 21:21 02/12/23 21:21 02/12/23 21:19 02/12/23 21:19 02/12/23 21:14 02/12/23 21:14 02/12/23 21:09 02/12/23 21:09 02/12/23 21:05 02/12/23 21:05 02/12/23 21:04 02/12/23 21:04 02/12/23 21:00 02/12/23 21:00 02/12/23 20:59 02/12/23 20:59 02/12/23 20:54 02/12/23 20:54 02/12/23 20:50 02/12/23 20:50 02/12/23 20:49 02/12/23 20:49 02/12/23 20:44 02/12/23 20:44 02/12/23 20:39 02/12/23 20:39 02/12/23 20:30 02/12/23 20:30 02/12/23 20:34 02/12/23 20:34 02/12/23 20:35 02/12/23 20:35 02/12/23 20:29 02/12/23 20:29 02/12/23 20:24 02/12/23 20:24 02/12/23 20:21 02/12/23 20:21 02/12/23 20:19 02/12/23 20:19 02/12/23 20:14 02/12/23 20:14 02/12/23 20:09 02/12/23 20:09 02/12/23 20:06 02/12/23 20:06 02/12/23 20:00 02/12/23 20:00 02/12/23 20:04 02/12/23 20:04 02/12/23 19:59 02/12/23 19:59 02/12/23 19:54 02/12/23 19:54 02/12/23 19:49 02/12/23 19:49 02/12/23 19:50 02/12/23 19:50 02/12/23 19:44 02/12/23 19:44 02/12/23 19:39 02/12/23 19:39 02/12/23 19:36 02/12/23 19:36 02/12/23 19:34 02/12/23 19:34 02/12/23 19:30 02/12/23 19:30 02/12/23 19:29 02/12/23 19:29 02/12/23 19:24 02/12/23 19:24 02/12/23 19:23 02/12/23 19:23 02/12/23 19:19 02/12/23 19:19 02/12/23 19:14 02/12/23 19:14 02/12/23 19:09 02/12/23 19:09 02/12/23 19:06 02/12/23 19:06 02/12/23 19:04 02/12/23 19:04 <Avani Fish MD - Last Filed: 02/13/23 07:04> Co-Signing Physician Notes Resident Physician Supervision Note: I interviewed and examined the patient. Discussed with Dr. Mckeon and agree with findings and plan as documented in the note. Any exceptions or clarifications are listed here: PP1 s/p , doing well. VSS, exam benign and wnl. Continue routine pp care Documented By: Avani Fish MD Resident Activity Tracking <Jorge Mckeon, DO - Last Filed: 02/13/23 07:03> Resident Involvement: Resident Care Provided Care Provided: OB Delivery
[2023-02-13] MEDS: DOCUSATE SODIUM 100 MG CAP PO SCH ×2 (07:42→20:32)
[2023-02-13] MEDS: PRENATAL VITAMIN 1 TAB PO SCH (07:42)
[2023-02-13] MEDS: FERROUS SULFATE 325 MG TAB PO SCH (07:42)
[2023-02-13] MEDS ORDERED: bisacodyL 5 MG TABEC PO SCH (20:00)
[2023-02-14] MEDS: IBUPROFEN 600 MG TAB PO PRN ×2 (01:07→08:05)
--- NOTE | 2023-02-14 06:43 | Obstetrical Progress Note ---
Date of Service <Jorge Mckeon DO - Last Filed: 02/14/23 06:44> February 14, 2023 Assessment & Plan <Jorge Mckeon DO - Last Filed: 02/14/23 06:44> (1) Vaginal delivery: Plan - Feels well today. Eating well, voiding well, ambulating well. - Pain well controlled with ibuprofen 600mg Q4H PRN - Routine care -- OOB, ambulation, diet progression as tolerated - After discharge will have 6 week follow-up with Dr. Fish. - Will D/C today. Day #:: 2 <Avril Hoff, DO - Last Filed: 02/14/23 08:24> (1) Vaginal delivery: Subjective <Jorge Mckeon DO - Last Filed: 02/14/23 06:44> Ambulation: ambulating normally Voiding: no voiding problems Passing Gas:: Yes Diet Tolerance:: regular diet Lochia:: Small Feeding Type:: breast feeding Current Pain Level(1-10): 0 Review of Systems Denies fever, chills, sweats Denies shortness of breath, difficulty breathing, chest pain, palpitations, chest pressure. Denies breast pain. Denies dysuria. Denies headache or changes in vision. Physical Exam <Jorge Mckeon DO - Last Filed: 02/14/23 06:44> General: Alert, oriented. No acute distress. Cardiac: Regular rate and rhythm, no murmurs/rubs/gallops. Respiratory: Clear to auscultation bilaterally a/p, no wheezes/rales/rhonchi. No increased work of breathing. Symmetrical chest rise. No respiratory distress. Abdomen: Soft, nontender, nondistended. Bowel sounds present. Uterus: Uterine fundus firm, palpable 3 cm below umbilicus. Lower Extremities: No lower extremity edema or swelling. No deep calf pain. Jennifer's negative bilaterally. Results & Data <Jorge Mckeon DO - Last Filed: 02/14/23 06:44> Vital Signs (Past 12 Hours) Vital Signs Temp Pulse Resp BP Pulse Ox O2 Del Method 02/14/23 04:20 36.5 C 74 20 117/69 98 Room Air 02/13/23 23:09 36.5 C 61 20 121/71 96 Room Air 02/13/23 19:30 36.6 C 74 20 122/74 100 Room Air <Avril Hoff DO - Last Filed: 02/14/23 08:24> Co-Signing Physician Notes Resident Physician Supervision Note: I was present with Dr. Mckeon during the history and exam. I discussed the case with the resident and agree with the findings and plan as documented in the note. Any exceptions or clarifications are listed here: PPD#2 doing well. DC home. Instructions reviewed. Followup 6w in office. Documented By: Avril Hoff DO Resident Activity Tracking <Jorge Mckeon, - Last Filed: 02/14/23 06:44> Resident Involvement: Resident Care Provided Care Provided: OB Delivery
[2023-02-14] MEDS: DOCUSATE SODIUM 100 MG CAP PO SCH (08:06)
[2023-02-14] MEDS: PRENATAL VITAMIN 1 TAB PO SCH (08:06)
[2023-02-14] MEDS: FERROUS SULFATE 325 MG TAB PO SCH (08:06)
== END 2023-02-14 13:20 | disposition home or self-care (01) | DRG 807 ==
LOC: 4S1 07:43 → 4E2 02-13 00:25